=== PATIENT | male | born 1945 | race Hispanic/Latino ===

== ENCOUNTER 2016-12-12 14:46 | Emergency (ER) | payer MEDICARE ==
[2016-12-12 15:34] LABS: Basophils % (Auto) 0.8 % (0.0-1.8); Eosinophils % (Auto) 0.6 % (0.0-4.3); Hematocrit 35.9 % (35.5-45.6); Hemoglobin 12.6 gm/dl (11.8-15.2); Mean Corpuscular HGB Conc 35 % (32-34); Mean Corpuscular Hemoglobin 34 pg (28-32); Mean Corpuscular Volume 96 fl (84-94); Platelet Count 120 K/mm3 (140-440); Red Blood Count 3.75 M/mm3 (3.65-5.03); Red Cell Distribution Width 12.5 % (13.2-15.2); White Blood Count 10.1 K/mm3 (4.5-11.0)
[2016-12-12 16:05] LABS: BUN/Creatinine Ratio 17.85; Calcium 9.3 mg/dL (8.4-10.2); Chloride 94.1 mmol/L (98-107); Potassium 3.4 mmol/L (3.6-5.0)
[2016-12-12] MEDS ORDERED: K-DUR PO ONE (17:04)
[2016-12-12] MEDS ORDERED: XOPENEX IH ONE (17:13)
[2016-12-12] MEDS ORDERED: ATROVENT IH ONE (17:13)
[2016-12-12] MEDS ORDERED: MAGNESIUM SULFATE 2GM/50ML 2 GM/50 ML BAG IV ONE (17:14)
--- NOTE | 2016-12-12 19:56 | Emergency Department Report ---
ED Shortness of Breath HPI - General Chief Complaint: Dyspnea/Respdistress Stated Complaint: DIFFICULTY BREATHING Time Seen by Provider: 12/12/16 17:00 Source: patient, EMS Mode of arrival: Stretcher Limitations: Other - History of Present Illness Initial Comments: 71-year-old male with a past medical history significant for COPD, diabetes, and hypertension presents to the hospital complaining of shortness of breath 4 days. Positive wheezing mild cough reported. No pain reported or fevers. Patient ran out of his prednisone 10 mg twice a day 2 days ago but has recently refilled all of his medications and has his medications at the bedside. Solu- Medrol given prior to arrival in addition to nebulized treatment Pt uses oxygen at night PMD: Quinten Daniels - Related Data Home Medications Medication Instructions Recorded Confirmed Last Taken Gabapentin [Neurontin] 600 mg PO Q8H 12/07/13 12/07/13 Unknown Levothyroxine [Synthroid] 75 mcg PO QAM 12/07/13 12/07/13 Unknown Tamsulosin [Flomax] 0.4 mg PO QDAY 12/07/13 12/07/13 Unknown glyBURIDE/METFORMIN HCL 1 tab PO BID 12/07/13 12/07/13 Unknown [Glucovance 2.5-500 mg] Previous Rx's Medication Instructions Recorded Last Taken Type ALBUTEROL NEB's [Proventil 0.083% 2.5 mg IH Q4H PRN #120 neb 12/08/13 Unknown Rx NEBS] Azithromycin [Zithromax] 500 mg PO QDAY #2 tablet 12/08/13 Unknown Rx predniSONE [Deltasone] 20 mg PO QDAY #20 tablet 12/08/13 Unknown Rx predniSONE [Deltasone] 40 mg PO QDAY #20 tab 04/11/15 Unknown Rx predniSONE [Deltasone] 20 mg PO BID #10 tablet 12/12/16 Unknown Rx Allergies Allergy/AdvReac Type Severity Reaction Status Date / Time ampicillin Allergy Swelling Verified 12/07/13 15:42 ED Review of Systems ROS: Stated complaint: DIFFICULTY BREATHING Other details as noted in HPI Comment: All other systems reviewed and negative Other: Constitutional: No fevers chills Eyes: No eye pain visual changes ENT: No ear pain or throat pain Neck: Denies pain Respiratory: as per hpi Cardiovascular: Denies chest pain, palpitations, syncope GI: Denies abdominal pain, nausea, vomiting, diarrhea : Denies dysuria Musculoskeletal: Denies back pain Skin: Denies rash, lesions, erythema Neurologic: Denies headache, numbness, weakness Psychiatric: Denies suicidal ideation, hallucinations ED Past Medical Hx - Past Medical History Previous Medical History?: Yes Hx Hypertension: Yes Hx Diabetes: Yes Hx Sickle Cell Disease: No Hx COPD: Yes Additional medical history: neuropathy. Sts has h/o pulmonary nodule on R s change for years. - Surgical History Past Surgical History?: No - Social History Smoking Status: Current Every Day Smoker Substance Use Type: Alcohol - Medications Home Medications: Home Medications Medication Instructions Recorded Confirmed Last Taken Type Gabapentin [Neurontin] 600 mg PO Q8H 12/07/13 12/07/13 Unknown History Levothyroxine [Synthroid] 75 mcg PO QAM 12/07/13 12/07/13 Unknown History Tamsulosin [Flomax] 0.4 mg PO QDAY 12/07/13 12/07/13 Unknown History glyBURIDE/METFORMIN HCL 1 tab PO BID 12/07/13 12/07/13 Unknown History [Glucovance 2.5-500 mg] ALBUTEROL NEB's [Proventil 0.083% 2.5 mg IH Q4H PRN #120 neb 12/08/13 Unknown Rx NEBS] Azithromycin [Zithromax] 500 mg PO QDAY #2 tablet 12/08/13 Unknown Rx predniSONE [Deltasone] 20 mg PO QDAY #20 tablet 12/08/13 Unknown Rx predniSONE [Deltasone] 40 mg PO QDAY #20 tab 04/11/15 Unknown Rx predniSONE [Deltasone] 20 mg PO BID #10 tablet 12/12/16 Unknown Rx ED Physical Exam - General Limitations: Other - Other Other exam information: General: No limitations, patient is alert in no acute distress Head exam: Atraumatic, normocephalic Eyes exam: Normal appearance ENT: Moist mucous membrane Neck exam: Normal inspection Respiratory exam: wheezing bilaterally, no accessory muscle use. Cardiovascular: Normal rate and rhythm, normal heart sounds Abdomen: Soft, nondistended, and nontender, with normal bowel sounds, no rebound, or guarding Extremity: Full range of motion normal inspection no deformity Back: Normal Inspection, full range of motion, no tenderness Neurologic: Alert, oriented x3, cranial nerves intact, no motor or sensory deficit Psychiatric: normal affect, normal mood Skin: Warm, dry, intact ED Course Vital Signs 12/12/16 12/12/16 12/12/16 14:46 14:47 14:49 Temperature Pulse Rate 118 H 103 H 101 H Pulse Rate [ Anterior Bilateral Throughout] Respiratory 28 H 26 H 24 Rate Respiratory Rate [Anterior Bilateral Throughout] Blood Pressure O2 Sat by Pulse 97 96 94 Oximetry 12/12/16 12/12/16 12/12/16 14:51 14:53 14:55 Temperature 98.4 F Pulse Rate 102 H 99 H 105 H Pulse Rate [ Anterior Bilateral Throughout] Respiratory 21 25 H 33 H Rate Respiratory Rate [Anterior Bilateral Throughout] Blood Pressure 127/71 O2 Sat by Pulse 95 95 96 Oximetry 12/12/16 12/12/16 12/12/16 15:01 15:30 16:00 Temperature Pulse Rate 105 H 93 H 92 H Pulse Rate [ Anterior Bilateral Throughout] Respiratory 21 20 19 Rate Respiratory Rate [Anterior Bilateral Throughout] Blood Pressure 128/71 148/77 124/85 O2 Sat by Pulse 95 92 96 Oximetry 12/12/16 12/12/16 12/12/16 16:30 17:01 17:31 Temperature Pulse Rate 90 85 Pulse Rate [ 87 Anterior Bilateral Throughout] Respiratory 29 H 28 H Rate Respiratory 20 Rate [Anterior Bilateral Throughout] Blood Pressure 134/80 132/59 139/65 O2 Sat by Pulse 92 92 95 Oximetry 12/12/16 12/12/16 12/12/16 18:01 18:25 18:30 Temperature Pulse Rate Pulse Rate [ 94 H Anterior Bilateral Throughout] Respiratory Rate Respiratory 20 Rate [Anterior Bilateral Throughout] Blood Pressure 140/65 132/75 O2 Sat by Pulse 95 94 Oximetry - Reevaluation(s) Reevaluation #1: 12/12/16 20:13 pt feels better and breath sounds are clear. ED Medical Decision Making - Lab Data Result diagrams: 12/12/16 15:19 12/12/16 15:19 Lab Results 12/12/16 12/12/16 12/12/16 Range/Units 15:19 15:19 15:19 WBC 10.1 (4.5-11.0) K/mm3 RBC 3.75 (3.65-5.03) M/mm3 Hgb 12.6 (11.8-15.2) gm/dl Hct 35.9 (35.5-45.6) % MCV 96 H (84-94) fl MCH 34 H (28-32) pg MCHC 35 H (32-34) % RDW 12.5 L (13.2-15.2) % Plt Count 120 L (140-440) K/mm3 Lymph % (Auto) 11.3 L (13.4-35.0) % Levy % (Auto) 6.2 (0.0-7.3) % Eos % (Auto) 0.6 (0.0-4.3) % Baso % (Auto) 0.8 (0.0-1.8) % Lymph # 1.1 L (1.2-5.4) K/mm3 Levy # 0.6 (0.0-0.8) K/mm3 Eos # 0.1 (0.0-0.4) K/mm3 Baso # 0.1 (0.0-0.1) K/mm3 Seg Neutrophils % 81.1 H (40.0-70.0) % Seg Neutrophils # 8.2 H (1.8-7.7) K/mm3 Sodium 136 L (137-145) mmol/L Potassium 3.4 L (3.6-5.0) mmol/L Chloride 94.1 L (98-107) mmol/L Carbon Dioxide 23 (22-30) mmol/L Anion Gap 22 mmol/L BUN 25 H (9-20) mg/dL Creatinine 1.4 (0.8-1.5) mg/dL Estimated GFR 50 ml/min BUN/Creatinine Ratio 17.85 % Glucose 130 H (75-100) mg/dL Calcium 9.3 (8.4-10.2) mg/dL Magnesium 1.60 L (1.7-2.3) mg/dL Troponin T 0.044 H (0.00-0.029) ng/mL Triglycerides 111 (2-149) mg/dL Cholesterol 136 (50-199) mg/dL LDL Cholesterol Direct 49 L (50-130) mg/dL HDL Cholesterol 65 H (40-59) mg/dL Cholesterol/HDL Ratio 2.09 % 05/25/17 Range/Units 18:17 WBC (4.5-11.0) K/mm3 RBC (3.65-5.03) M/mm3 Hgb (11.8-15.2) gm/dl Hct (35.5-45.6) % MCV (84-94) fl MCH (28-32) pg MCHC (32-34) % RDW (13.2-15.2) % Plt Count (140-440) K/mm3 Lymph % (Auto) (13.4-35.0) % Levy % (Auto) (0.0-7.3) % Eos % (Auto) (0.0-4.3) % Baso % (Auto) (0.0-1.8) % Lymph # (1.2-5.4) K/mm3 Levy # (0.0-0.8) K/mm3 Eos # (0.0-0.4) K/mm3 Baso # (0.0-0.1) K/mm3 Seg Neutrophils % (40.0-70.0) % Seg Neutrophils # (1.8-7.7) K/mm3 Sodium (137-145) mmol/L Potassium (3.6-5.0) mmol/L Chloride (98-107) mmol/L Carbon Dioxide (22-30) mmol/L Anion Gap mmol/L BUN (9-20) mg/dL Creatinine (0.8-1.5) mg/dL Estimated GFR ml/min BUN/Creatinine Ratio % Glucose (75-100) mg/dL Calcium (8.4-10.2) mg/dL Magnesium (1.7-2.3) mg/dL Troponin T 0.029 (0.00-0.029) ng/mL Triglycerides (2-149) mg/dL Cholesterol (50-199) mg/dL LDL Cholesterol Direct (50-130) mg/dL HDL Cholesterol (40-59) mg/dL Cholesterol/HDL Ratio % - Radiology Data Radiology results: image reviewed - Medical Decision Making The bone is mildly elevated however repeat shows a decrease in this value and patient does not have any chest pain. Breath sounds are currently clear with ED treatment. Asthma exacerbation likely secondary to his medication noncompliance last 2 days and he will be discharged on a burst of steroids and to continue his current meds. Patient received IV magnesium and by mouth potassium for mild hypokalemia and hypomagnesemia - Differential Diagnosis copd, pneumonia, uri Critical Care Time: No Critical care attestation.: If time is entered above; I have spent that time in minutes in the direct care of this critically ill patient, excluding procedure time. ED Disposition Clinical Impression: COPD exacerbation, Hypomagnesemia, Hypokalemia Disposition: DISCHARGED TO HOME OR SELFCARE Is pt being admited?: No Does the pt Need Aspirin: No Condition: Stable Instructions: Chronic Obstructive Pulmonary Disease (ED), Hypokalemia (ED), Hypomagnesemia (ED) Additional Instructions: Take the medication as prescribed. Take the prednisone 20 mg twice a day that was prescribed today and after 5 days resume your previous prednisone dose. Prescriptions: predniSONE [Deltasone] 20 mg PO BID #10 tablet Referrals: PRIMARY CARE, [Primary Care Provider] - 3-5 Days Time of Disposition: 20:19
[2016-12-12 20:33] VITALS: BP 154/69
--- NOTE | 2016-12-13 09:21 | XRay Report ---
AP CHEST: Cough. The lungs are hyperinflated with mild coarsening of the interstitial pattern throughout both lungs. No infiltrate nor nodule present. The heart is normal in size and is no vascular congestion. Compared to prior exam March 2015 been no significant changes. Impression: Chronic lung disease. No acute finding.
== END 2016-12-12 20:42 | disposition home or self-care (01) ==
LOC: ED 14:46
DX: J44.1 Chronic obstructive pulmonary disease with (acute) exacerbation (principal); E83.42 Hypomagnesemia; E87.6 Hypokalemia; I10 Essential (primary) hypertension; E11.40 Type 2 diabetes mellitus with diabetic neuropathy, unspecified; F17.200 Nicotine dependence, unspecified, uncomplicated; Z88.1 Allergy status to other antibiotic agents
CPT/HCPCS: 36415; 71010; 80048; 80061; 83735; 84484; 85025; 93005; 93010; 94644; 96365; 99285; J3475